=== PATIENT | male | born 1950 | race Caucasian/White ===

== ENCOUNTER 2019-04-02 13:09 | Emergency (ER) | payer OTHER ==
[2019-04-02 13:29] VITALS: BP 115/61
[2019-04-02] MEDS ORDERED: Fluorescein Sodium TOPICAL* 1 MG TEST STRIP OPHTHALMIC ONE (13:59)
[2019-04-02] MEDS ORDERED: Tetracaine 0.5% OPTH.SOL 4 ML* 1 DROP BTL LEFT EYE ONE (13:59)
--- NOTE | 2019-04-02 14:14 | UC ---
Eye Complaint HPI - HPI Summary HPI Summary: 69-year-old male who was out hunting and thought he had gotten some sort of plant debris in his left eye 2 days ago. He denies any visual changes. He states it feels like something might still be in there. - History of Current Complaint Chief Complaint: UCEye Stated Complaint: LEFT EYE Time Seen by Provider: 04/02/19 13:58 Hx Obtained From: Patient Onset/Duration: Sudden Onset Timing: Constant Severity Initially: Moderate Severity Currently: Mild Pain Intensity: 5 Location of Injury: Other - No Specific injury. Character: Foreign Body Sensation - Patient feels like he may have a foreign body in his eye which she attributes more to possibly a piece of goldenrod because he was out hunting. Aggravating Factor(s): Nothing Alleviating Factor(s): Nothing Associated Signs And Symptoms: Positive: Negative - Allergies/Home Medications Allergies/Adverse Reactions: Allergies Allergy/AdvReac Type Severity Reaction Status Date / Time No Known Allergies Allergy Verified 04/02/19 13:22 Home Medications: Home Medications Aspirin EC TAB* [Ecotrin EC Low Dose 81 MG*] 1 tab DAILY 04/02/19 [History Confirmed 04/02/19] Atorvastatin* [Lipitor 10 MG*] 1 tab QPM 04/02/19 [History Confirmed 04/02/19] Blood Pressure Med 1 tab DAILY 04/02/19 [History Confirmed 04/02/19] PMH/Surg Hx/FS Hx/Imm Hx Previously Healthy: Yes Cardiovascular History: Cardiac Disease - Surgical History Surgical History: Yes Surgery Procedure, Year, and Place: stents x2 - Family History Known Family History: Positive: Non-Contributory - Social History Occupation: Retired Alcohol Use: Rare Substance Use Type: None Smoking Status (MU): Current Some Day Smoker Type: Cigarettes Review of Systems All Other Systems Reviewed And Are Negative: Yes Eyes: Positive: Eye Redness, Other - Patient is a feeling of possible foreign body in his left cornea. Is Patient Immunocompromised?: No Physical Exam Triage Information Reviewed: Yes Appearance: Well-Appearing, No Pain Distress, Well-Nourished Vital Signs: Initial Vital Signs Temp 98.1 F 04/02/19 13:25 Pulse 82 04/02/19 13:25 Resp 16 04/02/19 13:25 BP 115/61 04/02/19 13:25 Pulse Ox 96 04/02/19 13:25 Vital Signs Reviewed: Yes Eyes: Positive: Conjunctiva Inflamed - Left conjunctiva injected with watery drainage. SALLY KUHN. Neurological: Positive: Alert Psychological Exam: Normal Skin Exam: Normal Eye Complaint Course/Dx - Course Course Of Treatment: After instillation of tetracaine, nor foreign body was noted. Fluorescein was then instilled and a very small corneal abrasion was noted to the inferior cornea. Globus intact. Foreign body when the eyelid was everted. - Differential Dx/Diagnosis Provider Diagnosis: Left corneal abrasion Discharge ED - Sign-Out/Discharge Documenting (check all that apply): Patient Departure All imaging exams completed and their final reports reviewed: No Studies - Discharge Plan Condition: Good Disposition: HOME Patient Education Materials: Corneal Abrasion (DC) Referrals: Radha Vera [Primary Care Provider] - Additional Instructions: Follow-up with an railroad yard worker in one or 2 days if you continue to feel like something is in your eye. Follow-up with your primary care provider or railroad yard worker if you develop any signs of eye infection such as pus drainage increased redness. - Billing Disposition and Condition Condition: GOOD Disposition: Home
== END 2019-04-02 14:20 | disposition home or self-care (01) ==
LOC: UCCORT 13:09
DX: S05.02XA Injury of conjunctiva and corneal abrasion without foreign body, left eye, initial encounter (principal); F17.210 Nicotine dependence, cigarettes, uncomplicated; X58.XXXA Exposure to other specified factors, initial encounter; Y92.9 Unspecified place or not applicable
CPT/HCPCS: 99202; A9270-GY; G0463